=== PATIENT | male | born 1990 | race Two or more races ===

== ENCOUNTER 2018-02-27 22:56 | Emergency (ER) | payer MEDICAID ==
[~2018-02-27] VITALS: Ht 170.2 cm; Wt 86.2 kg
[2018-02-27 23:19] VITALS: BP 134/89
[2018-02-28] MEDS ORDERED: LIDOCAINE VISCOUS 2% 15ML UD ONE (03:26)
[2018-02-28] MEDS ORDERED: ALUM & MAG HYDROX-SIMETH LIQ(MAALOX) 30 ML ONE (03:26)
[2018-02-28] MEDS ORDERED: DONNATAL 5ml ORAL Elix (BELLADONNA ALK-PHENOBARB) ONE (03:27)
== END 2018-02-28 03:50 | disposition home or self-care (01) ==
LOC: ER 22:56
DX: K21.9 Gastro-esophageal reflux disease without esophagitis (principal)

== ENCOUNTER 2018-10-25 04:24 | Emergency (ER) | payer MEDICAID ==
[~2018-10-25] VITALS: Ht 170.2 cm; Wt 90.7 kg
[2018-10-25 04:45] VITALS: BP 106/82
[2018-10-25] MEDS ORDERED: KETOROLAC TROMETH 60MG/2ML VIAL IM ONE (07:45)
== END 2018-10-25 08:14 | disposition home or self-care (01) ==
LOC: ER 04:27
DX: S16.1XXA Strain of muscle, fascia and tendon at neck level, initial encounter (principal); S39.012A Strain of muscle, fascia and tendon of lower back, initial encounter; V43.52XA Car driver injured in collision with other type car in traffic accident, initial encounter; Y93.I9 Activity, other involving external motion; Y92.488 Other paved roadways as the place of occurrence of the external cause; Y99.8 Other external cause status
CPT/HCPCS: 70450; 72125; 72131; 73552; 96372; 99284; J1885